=== PATIENT | female | born 1975 | race Two or more races ===

== ENCOUNTER 2024-05-20 23:14 | Emergency (ER) | payer OTHER ==
[~2024-05-20] VITALS: Ht 167.6 cm; Wt 59.0 kg
[2024-05-20] MEDS ORDERED: TRAZODONE HCL150 MG PO (23:29)
[2024-05-21] MEDS ORDERED: TETANUS & DIPHTHERIA TOX,ADULT 0.5 ML VIAL IM STA (01:29)
[2024-05-21] MEDS ORDERED: CEFAZOLIN SODIUM 1,000 MG VIAL IM STA (01:29)
[2024-05-21] MEDS ORDERED: TETANUS DIPHTHERIA TOX. ADSOR 5 ML VIAL IM ONE (01:47)
[2024-05-21] MEDS ORDERED: CEFAZOLIN SODIUM 1,000 MG VIAL ONE (01:47)
== END 2024-05-21 03:01 | disposition home or self-care (01) ==
LOC: ER 23:15
DX: S81.811A Laceration without foreign body, right lower leg, initial encounter (principal); W45.8XXA Other foreign body or object entering through skin, initial encounter; Y93.89 Activity, other specified; Y92.89 Other specified places as the place of occurrence of the external cause; Y99.9 Unspecified external cause status